=== PATIENT | male | born 1955 | race Caucasian/White ===

== ENCOUNTER → 2020-08-21 07:47 | Outpatient (BNVA) | payer OTHER, SELFPAY | PROVIDERS: Family Provider Nurse Practitioner; PCP Family Medicine; Visit Provider Nurse Practitioner Family | DX: R05 Cough (principal); J20.8 Acute bronchitis due to other specified organisms | CPT/HCPCS: 71046 ==

== ENCOUNTER 2020-10-27 16:04 | Emergency (ER) | payer MEDICARE, OTHER, SELFPAY ==
[2020-10-27 16:18] VITALS: BP 186/124; PULSE 103; RESP 18; TEMP 36.3; O2SAT 99; BMI 24.9
--- NOTE | 2020-10-27 19:04 | XRR_ITS ---
PROCEDURE INFORMATION: Exam: XR Chest Exam date and time: 10/27/2020 7:04 PM Age: 65 years old Clinical indication: Cough and shortness of breath; Additional info: Dyspnea TECHNIQUE: Imaging protocol: XR of the chest. Views: 1 view. COMPARISON: No relevant prior studies available. FINDINGS: Lungs: Hyperinflated lungs. No consolidation. No evidence of edema. Thin wire overlying the left lower hemithorax laterally consistent with mask located in pocket as noted by technologist. Pleural spaces: Unremarkable. No pleural effusion. No pneumothorax. Heart/Mediastinum: Mild enlargement of the cardiac silhouette. Bones/joints: Unremarkable. XR/XR chest 1V portable [id number] IMPRESSION: 1. No acute findings. 2. Mild enlargement of the cardiac silhouette.
== END 2020-10-27 21:58 ==
LOC: ER 16:13
PROVIDERS: Emergency Provider Family Medicine; PCP Family Medicine
DX: R06.02 Shortness of breath (principal); Z53.21 Procedure and treatment not carried out due to patient leaving prior to being seen by health care provider
CPT/HCPCS: 71045

== ENCOUNTER 2020-12-31 12:00 | Outpatient (CLI) | payer MEDICARE, OTHER, SELFPAY | END 2020-12-31 12:01 | disposition home or self-care (01) | LOC: SLEEP 01-01 09:09 | PROVIDERS: PCP Family Medicine; Visit Provider Family Medicine | DX: G47.33 Obstructive sleep apnea (adult) (pediatric) (principal); I11.0 Hypertensive heart disease with heart failure; I50.9 Heart failure, unspecified | CPT/HCPCS: G0399 ==